=== PATIENT | male | born 1965 | race Caucasian/White ===

== ENCOUNTER 2017-10-31 09:29 | Outpatient (CLI) | payer OTHER | END 2017-10-31 17:00 | disposition home or self-care (01) | LOC: SONOGRAMA 09:29 | DX: E04.1 Nontoxic single thyroid nodule (principal) ==

== ENCOUNTER 2019-12-01 02:45 | Emergency (ER) | payer OTHER ==
[~2019-12-01] VITALS: Ht 162.6 cm; Wt 72.6 kg
[2019-12-01] MEDS ORDERED: KETO10TA2 PO (05:33)
== END 2019-12-01 05:37 | disposition home or self-care (01) ==
LOC: ER 02:45
DX: M54.2 Cervicalgia (principal)